=== PATIENT | male | born 1960 | race Caucasian/White ===

== ENCOUNTER 2020-09-25 14:46 | Emergency (ER) | payer BC ==
[~2020-09-25] VITALS: Ht 175.3 cm; Wt 128.1 kg
[2020-09-25 14:50] VITALS: BP 147/97
[2020-09-25 16:16] LABS: BILIRUBIN,URINE SMALL (NEG); CLARITY,URINE TURBID; COLOR,URINE AMBER; GLUCOSE,URINE NEG (NEG); NITRITE,URINE POS (NEG); WBC,URINE >40 /HPF (0-4)
[2020-09-25 16:17] LABS: BACTERIA,URINE MANY /HPF (0-FEW); SQUAMOUS EPITHELIAL CELL,UR OCC /LPF
[2020-09-25] MEDS ORDERED: ONDANSETRON PF 4 MG/2 ML VIAL. ONE (16:28)
[2020-09-25 16:43] LABS: BASO % 0 % (0-3); EOS % 0 % (0-3); HEMATOCRIT 44.7 % (39.0-53.0); HEMOGLOBIN 14.9 g/dL (13.0-17.5); LYMPH # 0.6 x10^3/uL (1.0-4.8); LYMPH % 5 % (24-48); MEAN CORPUSCULAR HEMOGLOBIN 30 pg (25-35); MEAN CORPUSCULAR HGB CONC 33 g/dL (31-37); MEAN CORPUSCULAR VOLUME 89 fL (79-100); MONO # 1.4 x10^3/uL (0.0-1.1); MONO % 11 % (0-9); NEUT # 10.1 x10^3uL (1.8-7.7); NEUT % 84 % (31-73); PLATELET COUNT 113 x10^3/uL (140-400); RED BLOOD COUNT 5.02 x10^6/uL (4.30-5.70); RED CELL DISTRIBUTION WIDTH 14.7 % (11.5-14.5)
[2020-09-25 16:52] LABS: CALCIUM 8.6 mg/dL (8.5-10.1); GFR 75.7; POTASSIUM 3.9 mmol/L (3.5-5.1)
[2020-09-25 16:58] LABS: ALBUMIN/GLOBULIN RATIO 0.7 (1.0-1.7); TOTAL BILIRUBIN 1.6 mg/dL (0.2-1.0); TOTAL PROTEIN 7.3 g/dL (6.4-8.2)
[2020-09-25] MEDS ORDERED: levoFLOXacin 250 MG TABLET PO ONE (19:15)
[2020-09-25] MEDS ORDERED: LEVO750T5 PO (19:25)
--- NOTE | 2020-09-25 19:25 | PHYS DOC ---
Past History Additional Past Medical Histor: Prostate problems; (ANN ZAMBRANO APRN) Past Surgical History: No Surgical History Additional Past Surgical Histo: Prostate biopsy 09/15 (ANN ZAMBRANO APRN) Alcohol Use: None (ANN ZAMBRANO APRN) Adult General Chief Complaint Chief Complaint: POST-OP PROBLEM HPI HPI Patient is a 50-year-old male presents to emergency department reporting having difficulty urinating, increased urgency, urinary retention since having a prostate biopsy done on 09/15/[address] Rodriguez. Patient denies recent fever or chills, denies nausea, vomiting, diarrhea. Patient denies chest pain, chest congestion, rashes to the skin. Patient denies penile drip. Patient denies testicular pain. Patient reports he had a biopsy related to increased PSA level of 4.1 which is elevated from his previous year of 1.7. Patient denies any other physical complaints or physical concerns. (ANN ZAMBRANO APRN) Review of Systems Review of Systems 14 body systems of review of systems have been reviewed. See HPI for pertinent positives and negative responses, otherwise all other systems are negative, nonpertinent or noncontributory. Constitutional: Negative except as outlined in HPI above. Skin: Negative except as outlined in HPI above. Eyes: Negative except as outlined in HPI above. HENT: Negative except as outlined in HPI above. Respiratory: Negative except as outlined in HPI above. Cardiovascular: Negative except as outlined in HPI above. GI: Negative except as outlined in HPI above. : Negative except as outlined in HPI above. Musculoskeletal: Negative except as outlined in HPI above. Integument: Negative except as outlined in HPI above. Neurologic: Negative except as outlined in HPI above. Endocrine: Negative except as outlined in HPI above. Lymphatic: Negative except as outlined in HPI above. Psychiatric: Negative except as outlined in HPI above. (ANN ZAMBRANO APRN) Current Medications Current Medications Current Medications Medications (Trade) Dose Ordered Sig/Pablo Start Time Stop Time Status Last Admin Dose Admin Ondansetron HCl (Zofran) 4 mg STK-MED ONCE 09/25/20 16:28 09/25/20 16:28 DC (ANN ZAMBRANO APRN) Allergies Allergies Allergies Coded Allergies Type Severity Reaction Last Updated Verified Sulfa (Sulfonamide Antibiotics) Allergy Unknown 09/25/20 Yes (ANN ZAMBRANO APRN) Physical Exam Physical Exam Constitutional: Well developed, well nourished, no acute distress, non-toxic appearance. 60-year-old male in no apparent distress. HENT: Normocephalic, atraumatic. Eyes: Conjunctiva normal, no discharge. Neck: Normal range of motion. Cardiovascular: Distal cap refill less than 2 seconds, no cyanosis appreciated. Lungs & Thorax: Patient is in no respiratory distress, no adventitious lung sounds appreciated. Abdomen: Bowel sounds normal, soft, no masses, no pulsatile masses. No bruising or skin discoloration of the abdomen. Patient is abdomen round related to obesity. Skin: Warm, dry, no erythema, no rash. Back: No tenderness, no CVA tenderness. Extremities: No tenderness, no cyanosis, no clubbing, ROM intact, no edema. Neurologic: Alert and oriented X 3, normal motor function, normal sensory function, no focal deficits noted. Psychologic: Affect normal, judgement normal, mood normal. (ANN ZAMBRANO APRN) Current Patient Data Vital Signs Vital Signs Date Time Temp Pulse Resp B/P (MAP) Pulse Ox O2 Delivery O2 Flow Rate FiO2 09/25/20 14:50 98.8 105 20 147/97 95 Room Air Lab Results Laboratory Tests Test 09/25/20 15:31 09/25/20 16:13 Urine Collection Type Void Urine Color [place] Urine Clarity Turbid Urine pH 5.5 Urine Specific [place] 1.025 Urine Protein 100 mg/dl (NEG-TRACE) Urine Glucose (UA) Neg mg/dL (NEG) Urine Ketones (Stick) 80 mg/dL (NEG) Urine Blood Large (NEG) Urine Nitrite Pos (NEG) Urine Bilirubin Small (NEG) Urine Urobilinogen Dipstick 1.0 mg/dL (0.2 mg/dL) Urine Leukocyte Esterase Small (NEG) Urine RBC 6-10 /HPF (0-2) Urine WBC >40 /HPF (0-4) Urine Squamous Epithelial Cells Occ /LPF Urine Bacteria Many /HPF (0-FEW) White Blood Count 12.0 x10^3/uL (4.0-11.0) H Red Blood Count 5.02 x10^6/uL (4.30-5.70) Hemoglobin 14.9 g/dL (13.0-17.5) Hematocrit 44.7 % (39.0-53.0) Mean Corpuscular Volume 89 fL (79-100) Mean Corpuscular Hemoglobin 30 pg (25-35) Mean Corpuscular Hemoglobin Concent 33 g/dL (31-37) Red Cell Distribution Width 14.7 % (11.5-14.5) H Platelet Count 113 x10^3/uL (140-400) L Neutrophils (%) (Auto) 84 % (31-73) H Lymphocytes (%) (Auto) 5 % (24-48) L Monocytes (%) (Auto) 11 % (0-9) H Eosinophils (%) (Auto) 0 % (0-3) Basophils (%) (Auto) 0 % (0-3) Neutrophils # (Auto) 10.1 x10^3uL (1.8-7.7) H Lymphocytes # (Auto) 0.6 x10^3/uL (1.0-4.8) L Monocytes # (Auto) 1.4 x10^3/uL (0.0-1.1) H Eosinophils # (Auto) 0.0 x10^3/uL (0.0-0.7) Basophils # (Auto) 0.0 x10^3/uL (0.0-0.2) Sodium Level 137 mmol/L (136-145) Potassium Level 3.9 mmol/L (3.5-5.1) Chloride Level 100 mmol/L (98-107) Carbon Dioxide Level 26 mmol/L (21-32) Anion Gap 11 (6-14) Blood Urea Nitrogen 14 mg/dL (8-26) Creatinine 1.0 mg/dL (0.7-1.3) Estimated GFR (Cockcroft-Gault) 75.7 BUN/Creatinine Ratio 14 (6-20) Glucose Level 102 mg/dL (70-99) H Calcium Level 8.6 mg/dL (8.5-10.1) Total Bilirubin 1.6 mg/dL (0.2-1.0) H Aspartate Amino Transferase (AST) 16 U/L (15-37) Alanine Aminotransferase (ALT) 17 U/L (16-63) Alkaline Phosphatase 88 U/L (46-116) Total Protein 7.3 g/dL (6.4-8.2) Albumin 3.0 g/dL (3.4-5.0) L Albumin/Globulin Ratio 0.7 (1.0-1.7) L (ANN ZAMBRANO APRN) EKG EKG [] (ANN ZAMBRANO APRN) Radiology/Procedures Radiology/Procedures [] (ANN ZAMBRANO APRN) Heart Score C/O Chest Pain: No Risk Factors: Risk Factors: DM, Current or recent (<one month) smoker, HTN, HLP, family hi story of CAD, obesity. Risk Scores: Risk Factors: DM, Current or recent (<one month) smoker, HTN, HLP, family history of CAD, obesity. (ANN ZAMBRANO APRN) Course & Med Decision Making Course & Med Decision Making Pertinent Labs and Imaging studies reviewed. (See chart for details) 58-year-old male, vital signs reviewed, presents to the emergency department chief complaint of urinary retention with UTI type signs and symptoms since prostate biopsy 10 days ago. Physical examination consistent with patient's explanation of events. Will order urinalysis assay with post void bladder scan. Patient urinated 60 cc urine. Post void bladder scan 260 cc, ordered CBC, CMP. Related to patient's recent biopsy will catheterize to drain bladder with indwelling Szymanski. A 16 [place] indwelling Szymanski catheter with 10 cc balloon placed to dependent drainage, dark yellow urine without blood flowing into Szymanski bag, serum labs pending, patient tolerated well. 210 cc urine collected from Szymanski bag. Patient admits to decreased fluid intake stating he was scared to urinate a lot because of his biopsy. Patient states he thought he would hurt his biopsy site if he urinated too much. Ordered 1 L normal saline IV. Satisfactory urine output to Szymanski bag, patient's urine is infected. Discussed with patient will remove Szymanski, start on p.o. Levaquin regimen, strict follow-up with urology Dr. Rodriguez on Sunday. Patient is amenable to ER discharge planning. Discussed with the patient all findings and diagnostic testing as well as the need to follow-up with their primary care provider for further evaluation and treatment or return to the ED if any new or worsening symptoms. Strict return precautions were also discussed at length, the patient voiced understanding and agreement with the discharge planning. The patient was nontoxic in appearance, in no apparent distress, and hemodynamically stable at the time of disposition. (ANN ZAMBRANO APRN) Dragon Disclaimer Dragon Disclaimer This electronic medical record was generated, in whole or in part, using a voice recognition dictation system. (ANN ZAMBRANO APRN) Attending Co-Sign The patient was seen and interviewed as well as examined at the bedside. The chart was reviewed. The case was discussed. Agree with the plan of care. (MOLINA THOMPSON DO) Departure Departure: Impression: Primary Impression: UTI (urinary tract infection) Disposition: HOME / SELF CARE / HOMELESS Condition: GOOD Referrals: LAWRENCE ANN MD (PCP) Patient Instructions: Urinary Tract Infection Additional Instructions: You were seen here in the emergency department for urinary tract infection type signs and symptoms. After an extensive work-up, you do have a urinary tract infection, as we discussed this is most likely an incidental result from your prostate biopsy. As we discussed I am starting you on Levaquin antibiotic for your urinary tract infection, you will be given your first dose today in the emergency department. I am sending a prescription for the regimen completion to the [facility] pharmacy here in [facility] as you requested. Please increase your fluid intake to help flush out your urinary tract infection and assist with a speedy recovery during the disease process. Please return to the emergency department for worsening symptoms or other concerns. Thank you for visiting our Emergency Department. It was a pleasure taking care of you today in the emergency department and we appreciate you trusting us with your care. If any additional problems come up don't hesitate to return to visit us. Please follow up with your primary care provider so they can plan additional care if needed and know about the problem that you had. If symptoms worsen come back to the Emergency Department. Any concerning symptoms that start such as chest pain, shortness of air, weakness or numbness on one side of the body, running high fevers or any other concerning symptoms return to the ER. EMERGENCY DEPARTMENT GENERAL DISCHARGE INSTRUCTIONS Thank you for coming to [facility] (ED) today and trusting us with you care. We trust that you had a positivie experience in our Emergency Department. If you wish to speak to the department management, you may call the director at . YOUR FOLLOW UP INSTRUCTIONS ARE FOLLOWS: 1. Do you have a private Doctor? If you do not have a private doctor, please ask for a resource list of physicians or clinics that may be able to assist you with follow up care. 2. The Emergency Physician has interpreted your x-rays. The X-Ray specialist will also review them. If there is a change in the findings, you will be notified in 48 hours when at all possible. 3. A lab test or culture has been done, your results will be reviewed and you will be notified if you need a change in treatment. ADDITIONAL INSTRUCTIONS AND INFORMATION: 1. Your care today has been supervised by a physician who is specially trained in emergency care. Many problems require more than one evaluation for a complete diagnosis and treatment. We recommend that you schedule your follow up appointment as recommended to ensure complete treatment of you illness or injury. If you are unable to obtain follow up care and continue to have a problem, or if your condition worsens, we recommend that you return to the ED. 2. We are not able to safely determine your condition over the phone nor are we able to give sound medical advice over the phone. For these safety reasons, if you call for medical advice we will ask you to come to the ED for further evaluation. 3. If you have any questions regarding these discharge instructions please call the ED at [phone]. SAFETY INFORMATION: In the interest of safety, wellness, and injury prevention; we encourage you to wear your sealbelt, if you smoke; quite smoking, and we encourage family to use a protective helmet for bicycling and other sporting events that present an increased risk for head injury. IF YOUR SYMPTOMS WORSEN OR NEW SYMPTOMS DEVELOP, OR YOU HAVE CONCERNS ABOUT YOUR CONDITION; OR IF YOUR CONDITION WORSENS WHILE YOU ARE WAITING FOR YOUR FOLLOW UP APPOINTMENT; EITHER CONTACT YOUR PRIMARY CARE DOCTOR, THE PHYSICIAN WHOSE NAME AND NUMBER YOU WERE GIVEN, OR RETURN TO THE ED IMMEDIATELY. Scripts Levofloxacin (LEVOFLOXACIN) 750 Mg Tablet 1 TAB PO DAILY for uti, #5 TAB 0 Refills Prov: ANN ZAMBRNAO APRN 09/25/20 Problem Qualifiers Primary Impression: UTI (urinary tract infection) Urinary tract infection type: site unspecified Hematuria presence: with h ematuria Qualified Codes: N39.0 - Urinary tract infection, site not specified; R31.9 - Hematuria, unspecified ANN ZAMBRANO APRN Sep 25, 2020 19:25 MOLINA THOMPSON DO Sep 26, 2020 06:29
== END 2020-09-25 19:30 | disposition home or self-care (01) ==
LOC: ER 14:46
DX: N39.0 Urinary tract infection, site not specified (principal); Z88.2 Allergy status to sulfonamides
CPT/HCPCS: 36415; 51702; 80053; 81001; 85025; 87077; 87086; 87186; 99284-25